=== PATIENT | male | born 1980 | race Caucasian/White ===

== ENCOUNTER 2020-06-08 17:06 | Emergency (ER) | payer SELFPAY ==
[~2020-06-08] VITALS: Ht 172.7 cm; Wt 85.3 kg
[2020-06-08 17:17] VITALS: Ht 172.7 cm; Wt 85.3 kg
[2020-06-08 18:36] VITALS: BP 124/90
== END 2020-06-08 18:36 | disposition other institution (70) ==
LOC: ED 17:06
DX: L03.114 Cellulitis of left upper limb (principal); L03.113 Cellulitis of right upper limb; F11.10 Opioid abuse, uncomplicated
CPT/HCPCS: J0696

== ENCOUNTER 2020-06-08 17:06 | Emergency (ER) | payer OTHER | END 2020-06-08 18:36 | disposition other institution (70) | LOC: ED 17:06 | DX: Z02.89 Encounter for other administrative examinations (principal) ==